=== PATIENT | male | born 1960 | race Hispanic/Latino ===

== ENCOUNTER 2018-01-12 10:59 | Emergency (ER) | payer OTHER ==
[~2018-01-12] VITALS: Ht 162.6 cm; Wt 75.0 kg
[2018-01-12] MEDS ORDERED: VOLTAREN1%GEL TOP (13:19)
[2018-01-12 13:24] VITALS: BP 160/82
== END 2018-01-12 13:30 | disposition home or self-care (01) | DRG 552 ==
LOC: ED 10:59
DX: M54.5 Low back pain (principal); V89.2XXS Person injured in unspecified motor-vehicle accident, traffic, sequela